=== PATIENT | female | born 1975 | race Caucasian/White ===

== ENCOUNTER 2018-09-16 13:12 | Emergency (ER) | payer OTHER, SELFPAY ==
[2018-09-16 13:17] VITALS: BP 103/64; RESP 14; TEMP 37.2; O2SAT 96
== END 2018-09-16 14:29 | disposition left against medical advice (07) ==
PROVIDERS: Emergency Provider Physician Assistant; PCP Nurse Practitioner
DX: R05 Cough (principal); Z53.21 Procedure and treatment not carried out due to patient leaving prior to being seen by health care provider

== ENCOUNTER 2020-12-18 09:05 | Emergency (ER) | payer OTHER, SELFPAY ==
[2020-12-18 09:09] VITALS: BP 145/83; PULSE 99; RESP 16; TEMP 36.4; O2SAT 99
--- NOTE | 2020-12-18 09:10 | ED.GENADUL_ITS ---
Discharge Plan Disposition Patient Disposition: HOME Condition: Stable Discharge Details Clinical Impression: Laceration of thumb, left Primary Care Provider: Reece Cerrato ED Provider: Bonnie Siegel Home Meds and New Rx's Prescriptions: Continued albuterol 90 mcg/actuation Aerosol 90 mcg inhalation PRN PRNRF: 0 Discharge Instructions Instructions: Laceration (ED), Skin Adhesive Care (ED) Additional Instructions: Keep wound clean and dry. Cover wound with bandage if risk of contamination. Otherwise you can keep the wound open to air if resting at home to allow edges to dry and heal. Keep a nonadherent dressing or gauze over the area of glue as you do not want a ny adhesives to pull the glue off prematurely. Do not soak the wound in water. Change the dressing if it becomes wet or dirty. Remove the dressing tomorrow to allow it to be open to air for a period of time and then recover with dressing if risk of contamination or injury. Follow-up with your primary care doctor in 1 week as needed. Return to the emergency department with any worsening or new concerning symptoms. Stand Alone Forms: Work Release Discharge Data Discharge Physician: Bonnie Siegel Medical Decision Making 45-year-old female presents with left thumb laceration sustained while cutting an apple with a new knife at work prior to arrival. 4 x 4 millimeter left thumb laceration noted on tip. Epidermal flap is quite thin and likely would not be amenable to suturing. Patient states she is allergic to Steri-Strips and would prefer glue. Fingertip soaked in normal sali ne. Dermabond applied to tip of thumb laceration to help tack down. Patient advised on the importance of avoiding soaking finger, getting it dirty, and being sure to cover if risk of contamination or injury. Boostrix given. A nonadherent dressing and tube gauze placed over the thumb. Patient advised on the importance of keeping dressing and wound clean and dry. Advised that she can keep it open to air at times with resting without risk of contamination or injury. Advised to follow up with the primary care doctor for re-evaluation. Usual and customary return precautions given prior to discharge. Medical Records Medical records reviewed: Yes I reviewed the patient's medical records. HPI General Mode of arrival: ambulatory . Date/Time Provider Initiated Documentation: 12/18/20 09:05 . Limitations to Documentation: no limitations . Information obtained by: patient . HPI Narrative: Patient is a 45-year-old female presents with left thumb laceration sustained while cutting an apple with a new knife at work just prior to arrival. She is unsure of her tetanus status. She states she is having difficulty controlling the bleeding so she came to the ED. she is right-handed. Related Data Home Medications Medication Instructions Recorded Confirmed albuterol 90 mcg INHALATION PRN PRN 12/18/20 12/18/20 Allergies Allergy/AdvReac Type Severity Reaction Status Date / Time Penicillins Allergy Unknown Unverified 09/16/18 13:23 General JACKIE: 5 Review of Systems All systems reviewed & are unremarkable except as noted in HPI and below PFSH Social History Smoking/Tobacco Use Status: Never Smoking risk assessment performed?: Yes Alcohol Intake: current Alcohol Intake frequency: holidays/special occasions only Drug use: Never Substance use type: does not use Do you feel safe at home: Yes Do you feel safe in your relationship?: Yes Exam Const General: cooperative, healthy appearing and no acute distress HENMT Head: normal to inspection Mouth: oral mucosae normal Eyes General: appearance normal, both eyes and all related structures Neck Neck: normal visual inspection Resp Effort & Inspection: normal respiratory effort and able to speak in complete sentences Cardio Rate: regular rate Skin General skin exam: no rashes or lesions noted Neuro General: patient alert, patient awake and patient oriented x3 Motor: muscle tone normal throughout Extrem General: capillary refill normal Hand/finger images: 1. 4 x 4 millimeter flap laceration on left palm. Epidermal flap is quite thin. There is no active bleeding. No surrounding edema, ecchymosis, foreign body. Other: Full range of motion of left thumb. Motor/sensory grossly intact. Psych Appearance: grossly normal Affect: normal affect Procedures Laceration Laceration 1: Site: hand (tip of thumb) Side (If applicable): left Size (cm): 0.4 Description: flap Depth: simple, single layer Pre-repair: wound explored, irrigated extensively and deep structures intact Skin layer closed with: other (dermabond)
== END 2020-12-18 10:18 | disposition home or self-care (01) ==
PROVIDERS: Emergency Provider Physician Assistant; PCP Nurse Practitioner
DX: S61.012A Laceration without foreign body of left thumb without damage to nail, initial encounter (principal); W26.0XXA Contact with knife, initial encounter
CPT/HCPCS: 12001; 90471

== ENCOUNTER 2022-09-18 15:57 | Emergency (ER) | payer OTHER, SELFPAY ==
--- NOTE | 2022-09-18 16:00 | DI.CT_ITS ---
Exam(s) CT ABDOMEN PELVIS W EXAM: CT ABDOMEN PELVIS W CLINICAL HISTORY: RLQ pain. TECHNIQUE: Imaging Protocol: Axial computed tomography images with coronal and sagittal reformatted images were created and reviewed CONTRAST MATERIAL: Intravenous: Omnipaque 350 Contrast volume:100 ml Oral: Z no COMPARISON: No exams were available for comparison FINDINGS: ABDOMEN: Lung Bases: Normal where visualized. Liver: Normal density. Tiny peripheral cyst right lobe. No fissures measurable mass. Gallbladder and biliary tract: No radiodense calculus or dilation. Pancreas: Normal density, no abnormal calcifications or inflammatory process. Spleen: Normal. Kidneys: Normal size, contour and axis. No radiodense stones or obstructive uropathy. No masses seen. Adrenal glands: No masses seen. Abdominal Aorta: Abdominal portion non-dilated. PELVIS: Bladder: No gross wall thickening. No calculi.No focal mass. Bowel: No obstruction or bowel wall thickening. Appendix normal. Peritoneal cavity: No ascites, collection or mesenteric inflammatory response. Bones: Set degenerative changes L4-5. Minimal disc bulging. Degenerative disc changes lower thoraci c region Reproductive organs: Status post hysterectomy Lymph nodes: Unremarkable. Impression: No acute abnormality. RADIATION DOSE DELIVERED: 1,117.1mGy.cm Total DLP DATA REPOSITORY: All CT scans at this facility are submitted to the National Radiology Data Registry (NRDR) Dose Index Registry (DIR) with the [employer] (A[employer]). RADIATION OPTIMIZATION: All CT scans at this facility use at least one of these dose optimization te chniques: automated exposure control; mA and/or kV adjustment per patient size (includes targeted exa ms where dose is matched to clinical indication); or iterative reconstruction.
[2022-09-18 16:05] VITALS: BP 123/58; PULSE 78; RESP 18; TEMP 37.4; O2SAT 100
--- NOTE | 2022-09-18 16:41 | ED.GENADUL_ITS ---
Discharge Plan Disposition Patient Disposition: Home Condition: Improving Discharge Details Clinical Impression: Abdominal pain, RLQ Primary Care Provider: Reece Cerrato ED Provider: Alek Pradhan Home Meds and New Rx's Prescriptions: Continued albuterol 90 mcg/actuation Aerosol 90 mcg inhalation PRN PRN Discharge Instructions Instructions: Abdominal Pain (ED) Additional Instructions: A ultrasound has been ordered for tomorrow morning. At the top of the sheet you have been given is the number to call to schedule the timing for the ultrasound. May use the provided hydrocodone with Tylenol if needed for severe or breakthrough pain. Home to rest this evening. Return tomorrow or sooner for any acute concern. Medical Decision Making This is a 47-year-old female who presents from home after referral from urgent care. She developed periumbilical discomfort yesterday midday that progressed to right lower quadrant that she noticed to be more severe this morning. Associated with anorexia and nausea but no emesis. She will note a low-grade subjective fever at home. She arrives to the ER with normal vital signs. Exam reveals tenderness with mild rebound present at McBurney's point. Concerning for acute appendicitis, must exclude other intra-abdominal pathology. Patient IV access established, screening labs obtained, she is given fluids, acetaminophen and referred for imaging study. Laboratories note a white count of 8, hematocrit 44, platelets 227. Chemistries are unremarkable including LFTs. Urinalysis within normal limits. CT reveals a normal appendix, no evidence of intraperitoneal fluid. There is no acute process seen. Mild splenomegaly is noted in the patient is status post hysterectomy. Patient's pain is improved. Discussed with her that, given her history of ovarian cyst, she would benefit from follow-up vaginal ultrasound. This has been ordered. Patient will return tomorrow for ultrasound and recheck. She was consented for the use of a small number of narcotic analgesics at home this evening. She is stable for discharge. Sign Out No HPI General Mode of arrival: ambulatory . Date/Time Provider Initiated Documentation: 09/18/22 15:59 . Limitations to Documentation: no limitations . Information obtained by: patient . History of Present Illness 47 year old F presents to the emergency department with the chief complaint of Right lower quadrant pain since yesterday, described as moderate, Quality is described as dull and constant, and is localized to the abdomen and right. Patient reports no radiation. Patient started experiencing this hour(s) and it has been constant. Rest improves symptom(s), Movement worsens symptoms . Patient notes loss of appetite and other (Subjective low-grade fever). Patient did receive the following treatments prior to arrival, none Related Data Home Medications Medication Instructions Recorded Confirmed albuterol 90 mcg/actuation aerosol 90 mcg inhalation PRN PRN 12/18/20 09/18/22 inhaler Allergies Allergy/AdvReac Type Severity Reaction Status Date / Time Penicillins Allergy Unknown Unverified 09/18/22 16:08 General Stated Complaint: Abd Prob JACKIE: 3 Review of Systems Narrative: Status post hysterectomy. No recent illness. Immunized against COVID. Nauseated without emesis. Subjective fever at home that she describes as low- grade. 8 systems reviewed and otherwise negative PFSH All Active Problems (Updated 09/18/22 @ 18:41 by Alek Pradhan MD) Laceration of thumb, left (Acute) Abdominal pain, RLQ (Acute) Social History Smoking/Tobacco Use Status: Never Smoking risk assessment performed?: Yes Alcohol Intake: current Alcohol Intake frequency: holidays/special occasions only Drug use: Never Substance use type: does not use Do you feel safe at home: Yes Do you feel safe in your relationship?: Yes Exam Narrative Exam Narrative: GEN: awake, alert, oriented 3. Pleasant, well groomed, interactive. HEAD: Normocephalic, atraumatic ENT: Mucous membranes moist, External ear exam unremarkable EYES: PERRL, EOMI NECK: Full ROM, no DEVAN, no menigismus CHEST/RESP: Nontender, clear to auscultation bilateral, no wheeze/rhonchi/rales CARDIOVASCULAR: RRR, no murmur, rub darryl. 2+ Rad pulse bilateral ABDOMEN: Soft, tender in the right lower quadrant with mild rebound present, no mass. +Bowel sounds EXT: Full ROM, no edema, no rash Neuro: Grossly normal neurologic exam, conversant, interactive. Psych: Speech fluent, thoughts congruent, affect normal Course Vital Signs Vital signs: Vital Signs Temperature 37.4 C 09/18/22 16:05 Pulse 78 09/18/22 16:05 Respiratory Rate 18 09/18/22 16:05 Blood Pressure 123/58 L 09/18/22 16:05 Pulse Oximetry 100 09/18/22 16:05 Temperature 37.4 C 09/18/22 16:05 Temperature Source Temporal Artery Scan 09/18/22 16:05 Pulse 78 09/18/22 16:05 Respiratory Rate 18 09/18/22 16:05 Respiratory Effort Non-Labored 09/18/22 16:08 Blood Pressure 123/58 L 09/18/22 16:05 Blood Pressure Position Sitting 09/18/22 16:05 Pulse Oximetry 100 09/18/22 16:05 Oxygen Delivery Method Room Air 09/18/22 16:05 Oxygen Flow Rate 0 09/18/22 16:05
[2022-09-18 16:46] LABS: Abs Immature Grans 0.05 10^3/uL (0.0-0.06); Absolute Basophil Count 0.05 10^3/uL (0.0-0.2); Absolute Eosinophil Count 0.12 10^3/uL (0.0-0.7); Absolute Lymphocyte Count 1.97 10^3/uL (1.2-3.4); Absolute Monocyte Count 0.54 10^3/uL (0.1-0.8); Absolute Neutrophil Count 6.13 10^3/uL (1.2-6.7); Basophils % 0.6; Eosinophils % 1.4; HCT 44.1 % (36.0-46.0); Immature Grans % 0.6; Lymphocytes % 22.2; MCV 85 fL (80-95); MPV 9.2 fL (8.0-11.0); Monocytes % 6.1; Neutrophils % 69.1; Platelet Count 227 10^3/uL (130-400); RBC 5.17 10^6/uL (3.93-5.22); RDW 11.6 % (11.7-14.6); RDW-SD 36.1 fL; WBC 8.86 10^3/uL (4.4-10.8)
[2022-09-18] MEDS: Normal Saline 1,000 ML 1000 ML IV (16:49)
[2022-09-18] MEDS: ACETAMINOPHEN 1,000 MG/100 ML BTL 400 MG IVPB (16:55)
[2022-09-18 17:13] LABS: ALT 28 U/L (14-59); AST 23 U/L (15-37); Albumin 3.9 g/dL (3.4-5.0); Alkaline Phosphatase 61 U/L (46-116); BUN 13 mg/dL (7-18); Bilirubin, Total 0.6 mg/dL (0.2-1.0); CREATININE 0.8 mg/dL (0.55-1.02); Calcium 9.2 mg/dL (8.5-10.1); Chloride 102 mmol/L (98-107); Estimated GFR 91.97 (mL/min/1.73m2); Glucose 90 mg/dL (74-106); Potassium 3.8 mmol/L (3.5-5.1); Sodium 137 mmol/L (136-145); Total Protein 7.3 g/dL (6.4-8.2)
[2022-09-18 17:29] LABS: Bilirubin Negative (Negative); Blood Negative (Negative); Clarity Clear (Clear); Glucose Negative (Negative); Ketones Negative (Negative); Leukocyte Esterase Negative (Negative); Nitrite Negative (Negative); Urobilinogen 0.2 EU/dL (Up TO 0.2)
[2022-09-18] MEDS: Normal Saline - Diluent 50 ML VIAL IJ (17:58)
[2022-09-18] MEDS: Omnipaque 350 MG/ML 100 ML BTL IJ (17:58)
--- NOTE | 2022-09-18 18:19 | DI.VRAD_ITS ---
PROCEDURE INFORMATION: Exam: CT Abdomen And Pelvis With Contrast Exam date and time: 09/18/2022 5:52 PM Age: 47 years old Clinical indication: Other: Rlq pain TECHNIQUE: Imaging protocol: Computed tomography of the abdomen and pelvis with contrast. COMPARISON: No relevant prior studies available. FINDINGS: Liver: There is a sub cm low-dense lesion within the right hepatic lobe which is too small to characterize but likely represents a benign cyst or biliary hamartoma. Gallbladder and bile ducts: Normal. No calcified stones. No ductal dilation. Pancreas: Normal. No ductal dilation. Spleen: The spleen has a length of 13.1 cm consistent with mild splenomegaly. Adrenal glands: Normal. No mass. Kidneys and ureters: There is a focal region of cortical scarring of the upper pole of the left kidney. No renal or ureteral stones are identified. There is no hydronephrosis or hydroureter. Stomach and bowel: Unremarkable. No obstruction. No mucosal thickening. Appendix: The appendix is visualized and appears normal. Intraperitoneal space: There is no evidence of free intraperitoneal fluid. There is no free intraperitoneal air. Vasculature: Unremarkable. No abdominal aortic aneurysm. Lymph nodes: Unremarkable. No enlarged lymph nodes. Urinary bladder: No bladder stones are identified. Reproductive: There has been a hysterectomy. Bones/joints: There is mild facet arthrosis at L4-L5. There is multilevel mild degenerative disc disease of the lower thoracic spine. No acute fractures are identified. Soft tissues: Unremarkable. IMPRESSION: 1. No acute process within the abdomen or pelvis identified. 2. Mild splenomegaly. 3. Status post hysterectomy. Dictated and Authenticated by: Patrick Castaneda MD. Ordering:ELTON Gaston MD
--- NOTE | 2022-09-18 18:40 | NUR.NOTE ---
Nursing Note: Faxed to [facility] outpt request for US transvaginal for RLQ pain. To follow up in ED, to be done tomorrow Sep 2
[2022-09-18] MEDS: Ketorolac 15 MG/ML VIAL IVP (18:44)
== END 2022-09-18 19:11 | disposition home or self-care (01) ==
PROVIDERS: Emergency Provider Emergency Medicine; PCP Nurse Practitioner
DX: R10.32 Left lower quadrant pain (principal)
CPT/HCPCS: 80053; 96361; 96365; 96375; 99285; 74177; 81003; 85025; 99284; J0131; J1885; J3490

== ENCOUNTER 2022-09-19 13:24 | Emergency (ER) | payer OTHER, SELFPAY ==
[2022-09-19 13:31] VITALS: BP 134/74; PULSE 78; RESP 18; TEMP 37.3; O2SAT 99
[2022-09-19 14:40] VITALS: BP 118/58; PULSE 79; TEMP 36.9; O2SAT 98
--- NOTE | 2022-09-19 16:01 | ED.GENADUL_ITS ---
Discharge Plan Disposition Patient Disposition: Home Condition: Stable Discharge Details Clinical Impression: Abdominal pain Primary Care Provider: Reece Cerrato ED Provider: Renetta Shook Home Meds and New Rx's Prescriptions: No Action albuterol 90 mcg/actuation Aerosol 90 mcg inhalation PRN PRN Discharge Instructions Instructions: Abdominal Pain (ED) Additional Instructions: The ultrasound shows no evidence for ovarian cysts. PLease follow up with PCP in 3-5 days. Take tylenol or Ibuprofen as needed for pain. Referrals: Reece Cerrato [Primary Care Provider] - 3 days Discharge Data Discharge Date/Time-TO BE ENTERED AT DEPARTURE: 09/19/22 16:11 Medical Decision Making Ultrasound is negative nothing acute. I did discuss these results with patient. Patient had a full work-up yesterday including CT and labs. She reports she will follow-up with her primary care provider. This text was generated using [employer]ation system, please disregard any oddities of phrase or misspellings. Medical Records Medical records reviewed: Yes I reviewed the patient's medical records. Sign Out No HPI General Mode of arrival: ambulatory . Date/Time Provider Initiated Documentation: 09/19/22 15:54 . Limitations to Documentation: no limitations . Information obtained by: patient, RN notes reviewed and old records reviewed . HPI Narrative: Patient here for US results, seen yesterday. Still c/o mild RLQ abd pain. Related Data Home Medications Medication Instructions Recorded Confirmed albuterol 90 mcg/actuation aerosol 90 mcg inhalation PRN PRN 12/18/20 09/18/22 inhaler Allergies Allergy/AdvReac Type Severity Reaction Status Date / Time Penicillins Allergy Unknown Unverified 09/18/22 16:08 General Stated Complaint: Abd Prob JACKIE: 3 Review of Systems Gastrointestinal Gastrointestinal: Reports as per HPI and Reports abdominal pain PFSH All Active Problems (Updated 09/19/22 @ 16:08 by Renetta Shook, KEVIN) Laceration of thumb, left (Acute) Abdominal pain, RLQ (Acute) Abdominal pain (Acute) Social History Smoking/Tobacco Use Status: Never Smoking risk assessment performed?: Yes Alcohol Intake: current Alcohol Intake frequency: holidays/special occasions only Drug use: Never Substance use type: does not use Do you feel safe at home: Yes Do you feel safe in your relationship?: Yes Exam Narrative Exam Narrative: Constitutional: Alert and oriented x3. Appears stated age. Normal body habitus. Head: Normocephalic, no trauma. Eyes: Pupils PERRL, EOM's intact. Eyelids symmetrical without lesions, discharge, or swelling. Respiratory: Breathing eupneic no increased work of breathing Course Vital Signs Vital signs: Vital Signs Temperature 37.3 C 09/19/22 13:31 Pulse 78 09/19/22 13:31 Respiratory Rate 18 09/19/22 13:31 Blood Pressure 134/74 09/19/22 13:31 Pulse Oximetry 99 09/19/22 13:31 Temperature 36.9 C 09/19/22 14:40 Temperature Source Oral 09/19/22 14:40 Pulse 79 09/19/22 14:40 Respiratory Rate 18 09/19/22 13:31 Respiratory Effort 09/19/22 13:33 Blood Pressure 118/58 L 09/19/22 14:40 Blood Pressure Position Supine 09/19/22 13:31 Pulse Oximetry 98 09/19/22 14:40 Oxygen Delivery Method Room Air 09/19/22 14:40 Oxygen Flow Rate 0 09/19/22 14:40 Pain Level 5 09/19/22 13:31
== END 2022-09-19 16:11 | disposition home or self-care (01) ==
PROVIDERS: Emergency Provider Registered Nurse Emergency; PCP Nurse Practitioner
DX: R10.9 Unspecified abdominal pain (principal); Z71.2 Person consulting for explanation of examination or test findings